=== PATIENT | female | born 1955 | race Caucasian/White ===

== ENCOUNTER 2016-11-03 17:25 | Emergency (ER) | payer OTHER ==
[~2016-11-03] VITALS: Ht 154.9 cm; Wt 82.1 kg
[~2016-11-03 17:25] MED LIST: Aspirin E.C. PO; Bystolic PO; CATAPRES0.2 MG PO; CITALOPRAM HBR20 M1 PO; Cardizem CD,Cartia X PO; DIABETA,MICRONAS5 MG PO; GLUCOPHAGE1000 MG PO; JENTADUETO PO; LOPID600 MG PO; LOVASTATIN20 MG PO; Levaquin PO; SIMVASTATIN PO; VALTURNA 300-31 EACH PO; Vicodin,Norco 5/325 PO
[2016-11-03 17:50] LABS: ADD MIUA? YES; BILIRUBIN NEGATIVE; BLOOD NEGATIVE; GLUCOSE (STRIP) NEGATIVE; KETONES NEGATIVE; LEUKOCYTES TRACE; NITRITE NEGATIVE; PROTEIN (STRIP) 100; SPECIFIC GRAVITY 1.023 (1.000-1.030); UROBILINOGEN 0.2 MG/DL (0.2-1.0)
[2016-11-03 17:56] LABS: COLOR YELLOW ((YELLOW))
[2016-11-03 17:58] LABS: BACTERIA RARE /HPF; EPITHELIAL CELLS RARE /HPF; MUCUS TRACE /LPF; RED BLOOD CELLS 0-5 /HPF (0-5); UCUL ADDED? NO; WHITE BLOOD CELLS 0-5 /HPF (0-5)
[2016-11-03 18:04] LABS: HEMATOCRIT 38.7 % (36.0-46.0); MCH 29.6 PG (29.0-34.0); MCHC 33.3 G/DL (30.0-36.0); MCV 88.8 FL (83-99); MEAN PLAT.VOLUME 8.5 uM^3 (9.5-12.4); PLATELET COUNT 207 K/uL (156-360); RBC DIS.WIDTH-CV 11.8 % (11.8-14.6); RBC DIS.WIDTH-SD 37.9 % (39-53); RED BLOOD COUNT 4.36 M/uL (3.80-5.20)
[2016-11-03 18:14] LABS: CHLORIDE 97 mEq/L (99-109); POTASSIUM 4.2 mEq/L (3.7-5.4); SODIUM 133 mEq/L (136-147)
[2016-11-03 18:17] LABS: GLUCOSE 198 mg/dL (70-99)
[2016-11-03 18:18] LABS: ANION GAP 13 MEQ/L (2-14)
[2016-11-03 18:19] LABS: TOTAL BILIRUBIN 0.6 mg/dL (0.0-1.0)
[2016-11-03 18:20] LABS: ALKALINE PHOSPHATASE 88 IU/L (3-129); GFR ESTIMATE (CALCULATED) > 59 mL/min/
[2016-11-03 18:21] LABS: UREA NITROGEN (BUN) 14 mg/dL (9-23)
[2016-11-03] MEDS ORDERED: PYRIDIUM200 MG PO (18:27)
[2016-11-03] MEDS ORDERED: MACROBID100 MG PO (18:27)
[2016-11-03 18:34] VITALS: BP 139/72
== END 2016-11-03 18:41 | disposition home or self-care (01) ==
LOC: EME 17:25 → EXP 17:25
DX: N30.90 Cystitis, unspecified without hematuria (principal); Z88.1 Allergy status to other antibiotic agents; Z88.6 Allergy status to analgesic agent; E11.9 Type 2 diabetes mellitus without complications; E78.5 Hyperlipidemia, unspecified; I10 Essential (primary) hypertension; Z87.440 Personal history of urinary (tract) infections
CPT/HCPCS: 80053; 81003; 85027; 99281; 99284